=== PATIENT | female | born 1990 | race Two or more races ===

== ENCOUNTER 2018-05-23 16:54 | Emergency (ER) | payer SELFPAY ==
[2018-05-23 17:17] LABS: ADD MAN DIFF? NO
[2018-05-23 17:27] LABS: BASO # 0.1 x10^3/uL (0.0-0.2); BASO % 1 % (0-3); EOS # 0.1 x10^3/uL (0.0-0.7); EOS % 1 % (0-3); HEMATOCRIT 40.9 % (36.0-47.0); HEMOGLOBIN 13.5 g/dL (12.0-15.5); LYMPH # 2.8 x10^3/uL (1.0-4.8); LYMPH % 30 % (24-48); MEAN CORPUSCULAR HEMOGLOBIN 27 pg (25-35); MEAN CORPUSCULAR HGB CONC 33 g/dL (31-37); MEAN CORPUSCULAR VOLUME 82 fL (79-100); MONO # 0.6 x10^3/uL (0.0-1.1); MONO % 6 % (0-9); NEUT # 5.8 x10^3uL (1.8-7.7); NEUT % 62 % (31-73); PLATELET COUNT 292 x10^3/uL (140-400); RED BLOOD COUNT 4.97 x10^6/uL (3.50-5.40); RED CELL DISTRIBUTION WIDTH 14.2 % (11.5-14.5); WHITE BLOOD COUNT 9.4 x10^3/uL (4.0-11.0)
[2018-05-23] MEDS: LIDO:MAALOX 1:1 20 ML SINGLE DOSE. SWSW (17:29)
[2018-05-23 17:34] LABS: ANION GAP 7 (6-14); BLOOD UREA NITROGEN 11 mg/dL (7-20); BUN/CREATININE RATIO 18 (6-20); CALCIUM 9.2 mg/dL (8.5-10.1); CARBON DIOXIDE 27 mmol/L (21-32); CHLORIDE 104 mmol/L (98-107); CREATININE 0.6 mg/dL (0.6-1.0); GFR 119.9; GLUCOSE 266 mg/dL (70-99); POTASSIUM 4.2 mmol/L (3.5-5.1); SODIUM 138 mmol/L (136-145)
[2018-05-23 17:37] LABS: NEG OBC SER NEG; POS OBC SER POS; PREG TEST PT QUAL NEGATIVE (NEG)
[2018-05-23 17:42] LABS: ALBUMIN 3.4 g/dL (3.4-5.0); ALBUMIN/GLOBULIN RATIO 0.8 (1.0-1.7); ALK PHOS 97 U/L (46-116); ALT (SGPT) 49 U/L (14-59); AST (SGOT) 31 U/L (15-37); LIPASE 119 U/L (73-393); TOTAL BILIRUBIN 0.2 mg/dL (0.2-1.0); TOTAL PROTEIN 7.6 g/dL (6.4-8.2)
[2018-05-23 17:47] LABS: TROPONINI < 0.017 ng/mL (0.000-0.055)
[2018-05-23 17:54] LABS: D-DIMER < 0.27 ug/mlFEU (0.00-0.50)
== END 2018-05-23 18:22 | disposition home or self-care (01) ==
LOC: ER 16:54
DX: R07.89 Other chest pain (principal); R10.12 Left upper quadrant pain; R11.0 Nausea; I10 Essential (primary) hypertension; J45.909 Unspecified asthma, uncomplicated; F17.210 Nicotine dependence, cigarettes, uncomplicated
CPT/HCPCS: 36415; 71045; 80053; 83690; 84484; 84703; 85025; 85379; 93005; 99285-25

== ENCOUNTER 2020-09-16 12:39 | Observation (INO) | payer SELFPAY ==
[~2020-09-16] VITALS: Ht 172.7 cm; Wt 147.4 kg
[2020-09-16 13:30] VITALS: BP 133/73
[2020-09-16] MEDS ORDERED: BETAMET ACET&NA PHOS 30 MG/5 ML VIAL. IM ONE (14:30)
--- NOTE | 2020-09-16 15:19 | RAD ---
EXAM: Ultrasound PREG MORE THAN OR EQ TO 14 WKS 09/16/2020 12:42 PM INDICATION: [facility]. Sent to the hospital for oligohydramnios, discordant dates, possible placenta accreta. COMPARISON: [facility] 09/16/2020 TECHNIQUE: Limited OB ultrasound greater than 14 weeks FINDINGS: There is a single living intrauterine gestation in cephalic position. heart rate is 139 bpm. Placenta is anterior. There are multiple placental lakes noted. The posterior border of the placenta does appear irregular on some images, however it is unclear if some of this could be technical. biometry: Biparietal diameter: 8.52 cm, 34 weeks 2 days Head circumference: 31.24 cm, 35 weeks 0 days Abdominal circumference: 31.28 cm, 35 weeks 2 days Femur length: Unable to obtained. Could not visualize the lower extremities due to position, low amniotic fluid, and morbid obesity. HC/AC ratio: 1 DONNA: 7.2 cm Estimated gestational age by ultrasound: 34 weeks 6 days. IMPRESSION: 1. Single living intrauterine in cephalic position. Gestational age based on this ultrasound is 34 weeks 6 days, however this calculation may be inaccurate as it does not include femur length as the femurs could not be visualized. DONNA is 7.2 cm. 2. There are numerous placental lakes. As reported on the outside prior exam from earlier today, the posterior border of the placenta is irregular in areas. It is unclear if this is technical or could be related to placenta accreta. Recommend maternal- medicine consultation. Results discussed by Dr. Murcia with Zulema in labor and delivery at 3:20 PM on 09/16/2020. Electronically signed by: Karey Murcia MD (09/16/2020 3:17 PM) [id number]
--- NOTE | 2020-09-16 17:28 | PDOC1 ---
SKE[facility] H&P Date of Admission: Date of Admission: Sep 16, 2020 at 12:39 History of Present Illness: EDC: 11/03/20 LMP: 01/17/20 30y @ 33.1 by 9wk u/s who was sent from her anatomy u/s after she was discovered to have a DONNA of 1.5 cm. They also believed that she may have a placenta accrete. The pt was eval on L&D where a repeat u/s was performed. They found an DONNA of 7.2 cm, but subjectively expressed that they thought she was low on fluid as well. It was difficult for them to determine if there was a placenta accrete or just appearance based on the numerous placental lakes. The pt first discovered she was in March after presented to the [facility] ER. They referred her to the [facility]. When they discovered she was diabetic they started her on Metformin and gave her a few options for HROB. None of these options she could afford, so she never established. She represented to the ER in 08/29/20, they advised her to establish with [facility]. She has had on visit with them to date. She was being established with their DM educator. The pt reports good control on her current regime. Medications: Meds: Current Medications Medications (Trade) Dose Ordered Sig/[place] Route PRN Reason Start Time Stop Time Status Last Admin Dose Admin Betamethasone Sodium Phosphate (Celestone Soluspan) 12 mg 1X ONCE IM 09/16/20 14:30 09/16/20 14:31 DC 09/16/20 14:53 Allergies: Coded Allergies: No Known Drug Allergies (Unverified , 05/23/18) Physical Exam: Vital Signs: Vital Signs Date Time Temp Pulse Resp B/P (MAP) Pulse Ox O2 Delivery O2 Flow Rate FiO2 09/16/20 13:30 98.0 78 20 133/73 (93) 98.0 PE: GENERAL: No apparent distress. Alert and oriented. HEENT: Head normocephalic, atraumatic. NECK: Supple LUNGS: Clear to auscultation. HEART: RRR, S1, S2 present, pulses intact ABDOMEN: Soft, positive bowel sounds. EXTREMITIES: No cyanosis or edema. NEUROLOGIC: Normal speech, normal tone PSYCHIATRIC: Normal affect, normal mood. SKIN: No ulceration. FHT: 130s +acels/no decels/mLTV [place]: none Labs: Laboratory Tests Test 09/16/20 17:19 Glucose (Fingerstick) 87 mg/dL (70-99) Assessment & Plan: A/P 30y @ 33.1 by 9wk u/s 1.) Oligio initial report today was DONNA of 1.5 cm, repeat at [facility] 7.2 2.) Possible placenta accrete no h/o C/S, may be due to the numerous placental lakes 3.) BDM dxed two yrs ago, on metformin 1000 BID 4.) Asthma questionable control 5.) H/o PEC BP nml 6.) BMTZ #1 @ 1379 7.) Fetus cat I FHT 8.) GBS unk DARLIN BANSAL MD Sep 16, 2020 17:28
== END 2020-09-16 18:55 | disposition short-term general hospital (02) ==
LOC: 3 SO LND 12:39
PROVIDERS: ADMIT Obstetrics & Gynecology; ATTEND Obstetrics & Gynecology
DX: O24.419 Gestational diabetes mellitus in pregnancy, unspecified control (principal); Z3A.33 33 weeks gestation of pregnancy
CPT/HCPCS: 76805; 82962; 96372; G0378; G0379; J0702